=== PATIENT | male | born 1975 | race Caucasian/White ===

== ENCOUNTER 2018-05-12 16:27 | Emergency (ER) | payer BC, OTHER ==
[2018-05-12 17:56] LABS: HIV (1/2) Antibody/Antigen Non-Reactive (NonReactive); HIV 1/2 INDEX 0.08 S/CO (<1.00); Hep C IgG Ab Non-Reactive (NonReactive); Hep C Index 0.14 S/CO (0-0.79)
[2018-05-12 18:38] LABS: Hep B Surf AB Reactive (NonReactive)
== END 2018-05-12 16:49 | disposition home or self-care (01) ==
LOC: ERS 16:27
DX: Z77.21 Contact with and (suspected) exposure to potentially hazardous body fluids (principal); K21.9 Gastro-esophageal reflux disease without esophagitis; F17.220 Nicotine dependence, chewing tobacco, uncomplicated; Z79.899 Other long term (current) drug therapy
CPT/HCPCS: 36415; 86706; 86803; 87389; 99283

== ENCOUNTER 2018-11-21 18:52 | Emergency (ER) | payer BC, OTHER ==
[2018-11-21] MEDS ORDERED: Lidocaine 1% PF 5 ML VIAL ONE (18:55)
--- NOTE | 2018-11-21 20:24 | RAD ---
LEFT TOE THREE VIEW 11/21/18 HISTORY: Pain. COMPARISON: None. FINDINGS: There is no acute fracture or malalignment. No significant joint space narrowing. Minimal joint space narrowing. Mild soft tissue swelling. IMPRESSION: No acute fracture. POS: PHOEBE
== END 2018-11-21 20:05 | disposition home or self-care (01) ==
LOC: ERS 18:52
DX: S90.31XA Contusion of right foot, initial encounter (principal); F17.220 Nicotine dependence, chewing tobacco, uncomplicated; K21.9 Gastro-esophageal reflux disease without esophagitis; Z79.899 Other long term (current) drug therapy; X58.XXXA Exposure to other specified factors, initial encounter
CPT/HCPCS: 11740; 20552; J2001

== ENCOUNTER 2022-09-11 14:13 | Emergency (ER) | payer OTHER, BC ==
[2022-09-11] MEDS ORDERED: Nitroglycerin 2% Ointment 1 INCH/1 GM Packet ONE (14:31)
[2022-09-11] MEDS ORDERED: Morphine 2 MG/ML VIAL ONE (14:33)
[2022-09-11 14:36] LABS: #Eosinphils 0.1 thou/uL (0.0-0.7); #Lymphocytes 1.9 thou/uL (1.20-3.40); #Monocytes 0.6 thou/uL (0.11-0.59); #Neutrophils 3.7 thou/uL (1.40-6.50); %Basophils 0.2 % (0.0-1.0); %Eosinophils 1.3 % (0.0-10.0); %Lymphocytes 30.1 % (21.0-51.0); %Monocytes 10.2 % (0.0-10.0); %Neutrophils 58.1 % (42.0-75.0); Mean Corpuscular Hemoglobin 31.3 pg (27.0-31.0); Mean Corpuscular Volume 89.4 fl (78.0-98.0); Mean Platelet Volume 7.8 fL (7.4-10.4); Platelet Count 167 10x3/uL (130-400); RBC Distribution Width 12.2 % (11.5-14.5); Red Blood Cell (RBC) Count 5.75 mill/uL (4.70-6.10); White Blood Cell (WBC) Count 6.3 10x3/uL (4.8-10.8)
[2022-09-11] MEDS ORDERED: Aspirin Chewable 81 MG TAB ONE (14:50)
[2022-09-11 14:59] LABS: ALT (SGPT) 75 U/L (8-55); AST (SGOT) 49 U/L (5-34); Albumin 4.9 g/dL (3.5-5.0); Alkaline Phosphatase 63 U/L (40-110); Anion Gap 12 mmol/L (10-20); BUN (Urea Nitrogen) 13 mg/dL (8.9-20.6); Bilirubin, Total 2.3 mg/dL (0.2-1.2); Calc. Creatinine Clearance 0 mL/min (70-130); Calcium 9.7 mg/dL (7.8-10.44); Carbon Dioxide 28 mmol/L (22-29); Chloride 102 mmol/L (98-107); Estimated GFR 81; Globulin 2.9 g/dL (2.4-3.5); Glucose 99 mg/dL (70-105); Potassium 3.6 mmol/L (3.5-5.1); Protein, Total 7.8 g/dL (6.0-8.3); Sodium 138 mmol/L (136-145)
== END 2022-09-11 18:40 | disposition home or self-care (01) ==
LOC: ERS 14:13
DX: R07.9 Chest pain, unspecified (principal); R79.89 Other specified abnormal findings of blood chemistry; K21.9 Gastro-esophageal reflux disease without esophagitis
CPT/HCPCS: 36415; 71045; 80053; 83735; 83880; 84443; 84484; 85025; 93005; 96374; J2272